=== PATIENT | male | born 1955 | race Caucasian/White ===

== ENCOUNTER 2016-09-04 11:05 | Emergency (ER) | payer BC ==
[~2016-09-04] VITALS: Ht 170.2 cm; Wt 81.6 kg
[~2016-09-04 11:05] MED LIST: ALTACE5 MG PO; ANALGESIC325 M1 PO; ASPIR-TRIN325 M1 PO; Ambien PO; Aspirin E.C. PO; BUPROPION HCL150 M2 PO; CARDIZEM30 MG PO; CEFTIN500 MG PO; Colace PO; DIGITEK125 MC2 PO; DIGOXIN125 MCG PO; DUONEB 2.5-0.5 M3 ML AEROSOL; DUONEB3 ML IH; FUROSEMIDE20 MG PO; Habitrol,Nicoderm CQ TD; LEVAQUIN500 MG PO; LOPRESSOR12.5 MG PO; LOPRESSOR25 MG PO; LOSARTAN POTASS50 MG PO; LOVENOX40 MG/0.4 SC; Lasix PO; METOPROLOL TART25 MG PO; MUCINEX600 MG PO; MYCOSTATIN 100,60 ML PO; Maalox, Mylanta PO; Milk Of Magnesia,MOM PO; NITROSTAT,NITR0.4 M1 SL; OXYCODONE5 MG PO; PREDNISONE20 MG PO; PROVENTIL HFA6.7 GM; Percocet 5/325,Endoc PO; Protonix PO; QUETIAPINE FUMA50 MG PO; SENNA LAX8.6 MG PO; SIMVASTATIN20 MG PO; SPIRONOLACTONE25 MG PO; SYMBICORT60 INHALAT; SYMBICORT60 INHALAT IH; Symbicort 160-4.5 mc IH; THEO-DUR,THEOC200 MG PO; THEOPHYLLINE A200 M1 PO; THEOPHYLLINE400 MG PO; Tylenol Regular Stre PO; VENTOLIN HFA18 GM IH; Zofran IV; oxyCODONE PO; predniSONE PO
[2016-09-04] MEDS ORDERED: ASPIR-LOW81 MG PO (11:58)
[2016-09-04] MEDS ORDERED: WARFARIN SODIUM1 MG PO (11:58)
[2016-09-04] MEDS ORDERED: COLACE CLEAR50 MG PO (11:59)
[2016-09-04] MEDS ORDERED: PREDNISONE5 MG PO (11:59)
[2016-09-04 14:03] VITALS: BP 129/80
== END 2016-09-04 14:14 | disposition home or self-care (01) ==
LOC: EME 11:05
DX: K59.00 Constipation, unspecified (principal); R10.9 Unspecified abdominal pain; I25.2 Old myocardial infarction; I11.0 Hypertensive heart disease with heart failure; I50.9 Heart failure, unspecified; J44.9 Chronic obstructive pulmonary disease, unspecified; J45.909 Unspecified asthma, uncomplicated; E78.5 Hyperlipidemia, unspecified; Z95.1 Presence of aortocoronary bypass graft; Z95.2 Presence of prosthetic heart valve; Z87.891 Personal history of nicotine dependence
CPT/HCPCS: 74000; 99281; 99284

== ENCOUNTER 2017-12-06 20:13 | Observation (INO) | payer BC ==
[~2017-12-06] VITALS: Ht 167.6 cm; Wt 85.9 kg
[~2017-12-06 20:13] MED LIST changes: +ASPIR-LOW81 MG PO; +COLACE CLEAR50 MG PO; +PREDNISONE5 MG PO; +WARFARIN SODIUM1 MG PO
[2017-12-06 21:14] LABS: HEMATOCRIT 41.6 % (38.0-50.0); HEMOGLOBIN 14.3 G/DL (12.5-16.6); MCH 31.6 PG (29.0-34.0); MCHC 34.4 G/DL (30.0-36.0); MCV 91.8 FL (86-99); PLATELET COUNT 144 K/uL (156-360); RBC DIS.WIDTH-CV 13.2 % (11.8-14.6); RBC DIS.WIDTH-SD 44.5 % (39-53); RED BLOOD COUNT 4.53 M/uL (4.00-5.50); WHITE BLOOD COUNT 9.1 K/uL (4.1-10.2)
[2017-12-06 21:23] LABS: PTT 27.6 SEC (25-37)
[2017-12-06 21:29] LABS: ALBUMIN 4.1 g/dL (3.2-4.8); CHLORIDE 105 mEq/L (99-109); POTASSIUM 3.9 mEq/L (3.7-5.4); SODIUM 141 mEq/L (136-147)
[2017-12-06 21:31] LABS: GLUCOSE 94 mg/dL (70-99); TOTAL PROTEIN 6.7 g/dL (6.4-8.3)
[2017-12-06 21:33] LABS: TOTAL BILIRUBIN 0.7 mg/dL (0.0-1.0)
[2017-12-06 21:35] LABS: ALKALINE PHOSPHATASE 94 IU/L (3-129); GFR ESTIMATE (CALCULATED) > 59 mL/min/ (58.99-99999)
[2017-12-06 21:36] LABS: UREA NITROGEN (BUN) 11 mg/dL (9-23)
[2017-12-06 21:37] LABS: AST (GOT) 18 IU/L (2-34); INTER. NORMALIZED RATIO 1.1
[2017-12-06 21:38] LABS: ALT (GPT) 18 IU/L (3-49)
[2017-12-06 21:41] LABS: TROP-I INTERPRETATION NEGATIVE; TROPONIN-I < 0.01 ng/mL (0.0-0.30)
[2017-12-06 21:44] LABS: DIGOXIN 0.3 ng/mL (0.8-2.0)
[2017-12-07] MEDS ORDERED: METOPROLOL SUCC50 MG PO (01:43)
[2017-12-07] MEDS ORDERED: LOSARTAN POTASS25 MG PO (01:43)
[2017-12-07 01:44] VITALS: BP 126/74
[2017-12-07] MEDS ORDERED: ROSUVASTATIN CAL5 MG PO (01:44)
[2017-12-07] MEDS ORDERED: THEOPHYLLINE A200 M1 PO (01:48)
[2017-12-07] MEDS ORDERED: DIGOXIN125 MCG PO (01:50)
[2017-12-07 05:42] LABS: TROP-I INTERPRETATION NEGATIVE; TROPONIN-I < 0.01 ng/mL (0.0-0.30)
[2017-12-07 07:26] VITALS: BP 120/76
[2017-12-07] MEDS ORDERED: PROTONIX40 MG PO (09:09)
[2017-12-07 09:54] LABS: TROP-I INTERPRETATION NEGATIVE; TROPONIN-I < 0.01 ng/mL (0.0-0.30)
[2017-12-07] MEDS ORDERED: NITROSTAT0.4 MG SL (10:50)
== END 2017-12-07 11:25 | disposition home or self-care (01) ==
LOC: EME 20:13 → 4SOUTH 12-07 00:54 → EDOF 12-07 00:54 → 4SOUTH 12-07 00:54 → ENRESERV 12-07 00:57 → 4SOUTH 12-07 01:35
PROVIDERS: Emergency Medicine; Student in an Organized Health Care Education/Training Program
DX: R07.9 Chest pain, unspecified (principal); J44.9 Chronic obstructive pulmonary disease, unspecified; R11.2 Nausea with vomiting, unspecified; I25.10 Atherosclerotic heart disease of native coronary artery without angina pectoris; Z95.1 Presence of aortocoronary bypass graft; I11.0 Hypertensive heart disease with heart failure; I50.9 Heart failure, unspecified; R94.31 Abnormal electrocardiogram [ECG] [EKG]; Z87.891 Personal history of nicotine dependence; I48.0 Paroxysmal atrial fibrillation; Z98.890 Other specified postprocedural states; I27.20 Pulmonary hypertension, unspecified; E78.5 Hyperlipidemia, unspecified; I42.9 Cardiomyopathy, unspecified; Z79.82 Long term (current) use of aspirin; Z82.49 Family history of ischemic heart disease and other diseases of the circulatory system; Z80.3 Family history of malignant neoplasm of breast; Z83.3 Family history of diabetes mellitus; Z80.6 Family history of leukemia; Z79.01 Long term (current) use of anticoagulants
CPT/HCPCS: 71046; 71275; 80053; 80162; 84484; 85027; 85379; 85610; 85730; 93005; 94640; 94799; 99281; 99285; G0378; J2405; J7030